=== PATIENT | female | born 1935 | race Caucasian/White ===

== ENCOUNTER 2019-03-31 22:50 | Emergency (ER) | payer OTHER ==
[2019-03-31 22:54] VITALS: TEMP 98.5; BMI 20.2
--- NOTE | 2019-03-31 23:19 | PDOC ---
History of Present Illness - General Chief Complaint: Blood Pressure Problem Stated Complaint: HIGH BLOOD PRESSURE Time Seen by Provider: 03/31/19 23:08 - History of Present Illness Initial Comments: The pt is an 83F w/ a history of HTN and dementia who presents for evaluation of HTN w/ associated chest pain and dizziness for several days. She reports taking Metoprolol daily and being compliant, but has noted SBPs in the 200s for 3-4 days. [place], reports she has been hospitalized for her HTN before, but denies any other medical problems. 03/31/19 23:17 Past History - Past Medical History Allergies/Adverse Reactions: Allergies Allergy/AdvReac Type Severity Reaction Status Date / Time No Known Allergies Allergy Verified 03/31/19 22:54 Cardiac Disorders: Yes COPD: No HTN: Yes Hypercholesterolemia: Yes Other medical history: DEMENTIA - Suicide/Smoking/Psychosocial Hx Smoking History: Never smoked Review of Systems - Review of Systems Able to Perform ROS?: Yes Comments:: GENERAL/CONSTITUTIONAL: No fever or chills. No weakness HEAD, EYES, EARS, NOSE AND THROAT: No change in vision. No ear pain or discharge. No sore throat CARDIOVASCULAR: No shortness of breath RESPIRATORY: Denies cough, hemoptysis GASTROINTESTINAL: No nausea, vomiting, diarrhea or constipation GENITOURINARY: No dysuria, frequency, or change in urination MUSCULOSKELETAL: No joint or muscle swelling or pain. No neck or back pain SKIN: No rash NEUROLOGIC: No headache, loss of consciousness, or change in strength/sensation ENDOCRINE: No increased thirst. No abnormal weight change HEMATOLOGIC/LYMPHATIC: No anemia, easy bleeding, or history of blood clots ALLERGIC/IMMUNOLOGIC: No hives or skin allergy 03/31/19 23:30 *Physical Exam - Vital Signs Last Vital Signs Temp Pulse Resp BP Pulse Ox 98.5 F 83 18 213/92 H 98 03/31/19 22:51 03/31/19 22:51 03/31/19 22:51 03/31/19 22:51 03/31/19 22:51 - Physical Exam Comments: GENERAL: Awake, alert, and oriented to person/place/time, in no acute distress HEAD: No signs of trauma, normocephalic, atraumatic EYES: PERRLA, EOMI, sclera anicteric, conjunctiva clear ENT: Hearing grossly normal, nares patent, oropharynx clear without exudates. No uvular deviation. Moist mucosa LUNGS: No distress, speaks full sentences, clear to auscultation bilaterally HEART: Regular rate and rhythm, normal S1 and S2, no murmurs appreciated, peripheral pulses normal and equal bilaterally ABDOMEN: Soft, nontender, normoactive bowel sounds. No guarding, no rebound EXTREMITIES: Normal inspection, Normal range of motion, no edema. No clubbing or cyanosis NEUROLOGICAL: Cranial nerves II through XII grossly intact. Normal speech, no focal sensorimotor deficits SKIN: Warm, Dry 03/31/19 23:30 ED Treatment Course - LABORATORY CBC & Chemistry Diagram: 03/31/19 23:30 03/31/19 23:30 - RADIOLOGY Radiology Studies Ordered: Category Date Time Status HEAD CT WITHOUT CONTRAST [CT] Stat CT Scan 03/31/19 23:16 Ordered CHEST X-RAY PORTABLE* [RAD] Stat Radiology 03/31/19 23:16 Ordered Medical Decision Making - Medical Decision Making The pt is an 83F w/ a history of HTN who presents for evaluation of HTN urgency NTG 0.4mg SL x1, with subsequent improvement in BP and symptoms, but CP not resolved yet. Dizziness resolved. No anemia No leukocytosis Lytes unremarkable No ROHITH Trop I neg LFTs unremarkable ECG w/ NSR; HR 72; right axis deviation, no evidence of acute ischemia CXR w/o PNA; PNX; effusion 04/01/19 00:16 Pt reports that her symptoms have resolved 04/01/19 01:41 Will repeat Trop I and ECG If neg, plan for D/C w/ PCP and Cardiology f/u 04/01/19 02:25 Repeat Trop I neg and ECG w/o change BP improved Pt denies symptoms at this time Plan for D/C w/ PCP f/u Discharge instructions and return precautions given Pt in agreement and verbalized understanding Dispo: home 04/01/19 03:35 *DC/Admit/Observation/Transfer Diagnosis at time of Disposition: Hypertensive urgency Hypertension Qualifiers: Hypertension type: unspecified Qualified Code(s): I10 - Essential (primary) hypertension Chest pain Qualifiers: Chest pain type: unspecified Qualified Code(s): R07.9 - Chest pain, unspecified - Discharge Dispostion Disposition: HOME Condition at time of disposition: Improved Decision to Admit order: No - Referrals Referrals: [facility] [place] [facility] [place] [Provider Group] Bertram Truong MD [Staff Physician] - - Patient Instructions Printed Discharge Instructions: DI for High Blood Pressure Additional Instructions: You were seen in the Emergency Department for evaluation of high blood pressure , chest pain, and dizziness. Your labs, imaging, and ECG were negative for acute pathology. Review the handout provided at discharge. Follow up with your primary care provider or the referrals provided within a week. Return to the Emergency Department if you develop fevers/chills, chest pain, trouble breathing , dizziness, vision changes, nausea/vomiting, changes in sensation/strength, worsening symptoms, or any new/concerning symptoms. Se lo jenn en el Departamento de Emergencias para evaluar la presin arterial amrit, el dolor en el pecho y el mareo. Inga laboratorios, imgenes y ECG fueron negativos para patologa aguda. Revise el folleto provisto al momento del amrit. Omaira un seguimiento con birch proveedor de atencin primaria o con las referencias proporcionadas dentro de michelle semana. Regrese al Departamento de Emergencias si presenta fiebre / escalofros, dolor en el pecho, dificultad para respirar, mareos, cambios en la visin, nuseas / vmitos, cambios en la sensacin / fuerza, empeoramiento de los sntomas o cualquier sntoma nuevo o relacionado. Print Language: CENTRAL AFRICAN - Post Discharge Activity
[2019-03-31] MEDS ORDERED: NITROGLYCERIN SUBLINGUAL 1/150 0.4 MG TAB SL ONE (23:20)
[2019-03-31] MEDS ORDERED: NITROGLYCERIN SUBLINGUAL 1/150 0.4 MG TAB ONE (23:28)
[2019-03-31 23:39] LABS: BASO % 0.5 % (0-2.0); EOS % 1.9 % (0-4.5); HEMOGLOBIN 11.6 GM/dL (10.7-15.3); LYMPH % 28.8 % (8-40); MCH 29.2 pg (25.7-33.7); MCHC 33.3 g/dl (32.0-36.0); MEAN CELL VOLUME 87.7 fl (80-96); MEAN PLT VOLUME 9.9 fl (7.5-11.1); NEUT % 60.8 % (42.8-82.8); PLATELET COUNT 181 K/MM3 (134-434); RBC 3.98 M/mm3 (3.60-5.2); RDW 13.1 % (11.6-15.6); WHITE BLOOD COUNT 8.1 K/mm3 (4.0-10.0)
[2019-04-01 00:06] LABS: ALBUMIN 3.7 g/dl (3.4-5.0); ALK PHOS 69 U/L (45-117); ANION GAP 5 MMOL/L (8-16); BILIRUBIN,TOTAL 0.3 mg/dL (0.2-1); BLOOD UREA NITROGEN 8.7 mg/dL (7-18); CALCIUM 9.3 mg/dL (8.5-10.1); CHLORIDE 103 mmol/L (98-107); CO2 29 mmol/L (21-32); CREATININE 0.5 mg/dL (0.55-1.3); GLUCOSE,RANDOM 102 mg/dL (74-106); POTASSIUM 3.7 mmol/L (3.5-5.1); SGOT/AST 22 U/L (15-37); SGPT/ALT 20 U/L (13-61); SODIUM 136 mmol/L (136-145); TOT PROT 7.2 g/dl (6.4-8.2)
--- NOTE | 2019-04-01 00:59 | PDOC ---
Documentation entered by Daniel Ladd SCRIBE, acting as scribe for Vasu Horan MD. Vasu Horan MD: This documentation has been prepared by the Wilberto silver Daniel, SCRIBE, under my direction and personally reviewed by me in its entirety. I confirm that the documentation accurately reflects all work, treatment, procedures, and medical decision making performed by me. Attending Attestation - Resident Resident Name: Jose G Matthews - ED Attending Attestation I have performed the following: I have examined & evaluated the patient, The case was reviewed & discussed with the resident, I agree w/resident's findings & plan, Exceptions are as noted - HPI HPI: 03/31/19 23:37 The patient is an 83 year old female with a past medical history of HTN and dementia here today for evaluation of elevated blood pressure and chest discomfort. The patient reports that she has had several days of blood pressures in the 200s at home with non exertional chest discomfort and dizziness. [place] and [place] there but cannot elaborate on why she was hospitalized. Patient denies headache. Denies fever, chills. Denies shortness of breath. Denies nausea, vomiting, diarrhea, abdominal pain. Allergies: NKA - Physicial Exam PE: 03/31/19 23:37 GENERAL: The patient is awake, alert, and fully oriented, Nontoxic - in no acute distress. HEAD: Normocephalic, atraumatic. EYES: extraocular movements intact, sclera anicteric, conjunctiva clear. ENT: Normal voice, Moist mucous membranes. NECK: Normal range of motion, supple LUNGS: Breath sounds equal, clear to auscultation bilaterally. No wheezes, no rhonchi, no rales. HEART: Regular rate and rhythm, without murmur, rub or gallop. ABDOMEN: Soft, nontender, No guarding, no rebound.No CVA tenderness EXTREMITIES: Normal range of motion, no edema. No cyanosis. No erythema, or tenderness. NEUROLOGICAL: No facial assymetry, Normal speech, PSYCH: Normal mood, normal affect. SKIN: Warm, Dry, normal turgor, - Medical Decision Making 03/31/19 23:31 83y F hx of htn, dementia presents with several days of hypertension, cp dizziness, - pt has been compliaint with medications per family. endorses mild chest discomfort but is interemint, non exertional without associated shortness of breath, dyspnea on exertion, diaphoresis will treat ntg for cp/htn family notes pt has been stressed as [place] - I suspect that her hypertension may be stress related. Low suspicion for ACS will obtain troponin 2. 04/01/19 03:55 Troponin negative 2, the patient is currently asymptomatic, blood pressure is also normalized We'll discharge patient with PMD follow-up Heart Score/ECG Review - ECG Impressions Comment:: 04/01/19 00:59 Twelve-lead EKG was performed and reviewed by me. There is normal sinus rhythm with a normal rate. Rate of 72 Right distal axis deviation No ST changes suggestive of acute ischemia
[2019-04-01 03:57] VITALS: BP 159/79; PULSE 79
--- NOTE | 2019-04-01 13:34 | EKG ---
Test Reason : Blood Pressure : / mmHG Vent. Rate : 074 BPM Atrial Rate : 074 BPM P-R Int : 120 ms QRS Dur : 086 ms QT Int : 386 ms P-R-T Axes : 109 154 138 degrees QTc Int : 428 ms SUSPECT ARM LEAD REVERSAL, INTERPRETATION ASSUMES NO REVERSAL NORMAL SINUS RHYTHM RIGHT AXIS DEVIATION ABNORMAL ECG WHEN COMPARED WITH ECG OF 01-APR-2019 00:11, NO SIGNIFICANT CHANGE WAS FOUND Confirmed by RUSS MARTINEZ MD ([id number]) on 04/01/2019 1:34:25 PM Referred By: Confirmed By:RUSS MARTINEZ MD
--- NOTE | 2019-04-01 13:36 | EKG ---
Test Reason : Blood Pressure : / mmHG Vent. Rate : 072 BPM Atrial Rate : 072 BPM P-R Int : 114 ms QRS Dur : 086 ms QT Int : 386 ms P-R-T Axes : 115 145 127 degrees QTc Int : 422 ms SUSPECT ARM LEAD REVERSAL, INTERPRETATION ASSUMES NO REVERSAL NORMAL SINUS RHYTHM RIGHT AXIS DEVIATION ABNORMAL ECG NO PREVIOUS ECGS AVAILABLE Confirmed by RUSS MARTINEZ MD ([id number]) on 04/01/2019 1:36:07 PM Referred By: Confirmed By:RUSS MARTINEZ MD
== END 2019-04-01 03:55 | disposition home or self-care (01) ==
LOC: JER 22:50
DX: I16.0 Hypertensive urgency (principal); E78.00 Pure hypercholesterolemia, unspecified; F03.90 Unspecified dementia, unspecified severity, without behavioral disturbance, psychotic disturbance, mood disturbance, and anxiety
CPT/HCPCS: 36415; 70450-TC; 71045-TC-FY; 80053; 82550; 84484; 85025; 85730; 93005; 93010; 99283-25

== ENCOUNTER 2019-04-04 23:27 | Observation (INO) | payer OTHER ==
[2019-04-04 23:40] VITALS: BMI 25.2
--- NOTE | 2019-04-05 01:41 | PDOC ---
History of Present Illness - General Chief Complaint: Blood Pressure Problem Stated Complaint: HIGH BLOOD PRESSURE Time Seen by Provider: 04/05/19 01:39 History Source: Patient - History of Present Illness Initial Comments: 04/05/19 01:40 83 year old female with nausea, dizziness, headache and chest pain. patient noted that her b/p is elevated than normal. patient reports that she took her dose of b/p med now feels slightly better. Now with chest pain , less intense than before. denies diaphoresis, vomiting, abdominal pain, . pain is not worse with movement or laying down. PMHX: temporal neuritis; hypertension, 04/05/19 02:54 Past History - Past Medical History Allergies/Adverse Reactions: Allergies Allergy/AdvReac Type Severity Reaction Status Date / Time No Known Allergies Allergy Verified 04/04/19 23:40 Cardiac Disorders: Yes COPD: No HTN: Yes Hypercholesterolemia: Yes - Suicide/Smoking/Psychosocial Hx Smoking History: Never smoked Have you smoked in the past 12 months: No Information on smoking cessation initiated: No Hx Alcohol Use: No Drug/Substance Use Hx: No Review of Systems - Review of Systems Able to Perform ROS?: Yes Is the patient limited Maltese proficient: No Constitutional: No: Symptoms Reported, See HPI, Chills, Diaphoresis, Fever, Loss of Appetite, Malaise, Night Sweats, Weakness, Weight Stable, Unintentional Wgt. Loss, Unexplained wgt Loss, Other Cardiac (ROS): Yes: Chest Pain. No: Symptoms Reported, See HPI, Edema, Irregular Heart Rate, Lightheadedness, Palpitations, Syncope, Chest Tightness, Other ABD/GI: Yes: Nausea. No: Symptoms Reported, See HPI, Abdominal Distended, Abd. Pain w/ defecation, Blood Streaked Bowels, Constipated, Diarrhea, Difficulty Swallowing, Poor Appetite, Poor Fluid Intake, Rectal Bleeding, Vomiting, Indigestion, Abdominal cramping, Tarry Stools, Other Neurological: Yes: Headache, Dizziness. No: Symptoms reported, See HPI, Numbness, Paresthesia, Pre-Existing Deficit, Seizure, Tingling, Tremors, Weakness, Unsteady Gait, Ataxia, Other *Physical Exam - Vital Signs Last Vital Signs Temp Pulse Resp BP Pulse Ox 98.7 F 79 18 169/83 100 04/04/19 23:37 04/04/19 23:37 04/04/19 23:37 04/04/19 23:37 04/04/19 23:37 - Physical Exam General Appearance: Yes: Appropriately Dressed HEENT: positive: Normal ENT Inspection Respiratory/Chest: positive: Lungs Clear, Normal Breath Sounds. negative: Chest Tender Cardiovascular: positive: Regular Rhythm, Regular Rate Gastrointestinal/Abdominal: positive: Normal Bowel Sounds, Soft. negative: Tender Extremity: positive: Normal Capillary Refill, Normal Inspection, Normal Range of Motion Integumentary: positive: Normal Color, Dry, Warm Neurologic: positive: Fully Oriented, Alert Heart Score/ECG Review - History History: Slightly suspicious - Electrocardiogram EKG: Normal - Age Age: >/= 65 - Risk Factors Risk Factors Heart Score: Yes Hx Hypertension Based on the list above the patient has:: 1-2 risk factors - Troponin Troponin: </= normal limit - Score Heart Score - Total: 3 - ECG Intrepretation Rhythm: Regular Rhythm Comment:: 04/05/19 03:01 NSR : 72 bpm ED Treatment Course - LABORATORY CBC & Chemistry Diagram: 04/05/19 02:20 04/05/19 02:20 - ADDITIONAL ORDERS Additional order review: Laboratory Results 04/05/19 04/05/19 02:20 02:20 PT with INR 11.20 INR 0.95 Sodium 137 Potassium 4.8 Chloride 103 Carbon Dioxide 30 Anion Gap 3 L BUN 9.9 Creatinine 0.6 Est GFR (CKD-EPI)AfAm 99.07 Est GFR (CKD-EPI)NonAf 85.48 Random Glucose 108 H Calcium 9.3 Magnesium 2.2 Total Bilirubin 0.2 AST 22 ALT 17 Alkaline Phosphatase 74 Creatine Kinase 146 Troponin I < 0.02 Total Protein 7.4 Albumin 3.8 04/05/19 02:20 RBC 4.02 MCV 88.1 MCHC 33.3 RDW 13.4 MPV 10.0 Neutrophils % 63.5 Lymphocytes % 28.2 Monocytes % 6.5 Eosinophils % 1.6 Basophils % 0.2 - RADIOLOGY Radiology Studies Ordered: Category Date Time Status HEAD CT WITHOUT CONTRAST [CT] Stat CT Scan 04/05/19 01:43 Taken CHEST X-RAY PORTABLE* [RAD] Stat Radiology 04/05/19 01:42 Taken - Medications Given in the ED: ED Medications Discontinued Medications Generic Name Dose Route Start Last Admin Trade Name Freq PRN Reason Stop Dose Admin Aspirin 162 mg 04/05/19 01:42 04/05/19 02:35 Asa - PO 04/05/19 01:43 162 mg ONCE ONE Administration Medical Decision Making - Medical Decision Making 04/05/19 03:00 A: chest pain r/o ACS P: cbc cmp cardiac enzymes chest xray 04/05/19 04:20 CT head: The ventricular system is midline and nondilated. There is mild cortical atrophy and small vessel ischemic disease.. There is no bleed, mass, extra-axial fluid collection or mass effect. No skull fracture or skull lesion is identified. The visualized paranasal sinuses and mastoid air cells are clear patient signed out to Dr. Rubalcava/ Dr. Vásquez *DC/Admit/Observation/Transfer Diagnosis at time of Disposition: Chest pain Qualifiers: Chest pain type: unspecified Qualified Code(s): R07.9 - Chest pain, unspecified - Discharge Dispostion Decision to Admit order: Yes - Referrals - Patient Instructions - Post Discharge Activity
[2019-04-05] MEDS ORDERED: ASPIRIN 81 MG CHEWABLE TABLETS PO ONE (01:42)
[2019-04-05] MEDS ORDERED: ASPIRIN 81 MG CHEWABLE TABLETS ONE (02:05)
[2019-04-05 02:33] LABS: BASO % 0.2 % (0-2.0); EOS % 1.6 % (0-4.5); HEMATOCRIT 35.4 % (32.4-45.2); HEMOGLOBIN 11.8 GM/dL (10.7-15.3); LYMPH % 28.2 % (8-40); MCH 29.3 pg (25.7-33.7); MCHC 33.3 g/dl (32.0-36.0); MEAN CELL VOLUME 88.1 fl (80-96); MONO % 6.5 % (3.8-10.2); NEUT % 63.5 % (42.8-82.8); PLATELET COUNT 194 K/MM3 (134-434); RBC 4.02 M/mm3 (3.60-5.2); RDW 13.4 % (11.6-15.6); WHITE BLOOD COUNT 9.6 K/mm3 (4.0-10.0)
[2019-04-05 02:48] LABS: INR 0.95 (0.83-1.09); PROTHROMBIN TIME (PATIENT) 11.2 SEC (9.7-13.0)
[2019-04-05 03:03] LABS: ALBUMIN 3.8 g/dl (3.4-5.0); ALK PHOS 74 U/L (45-117); ANION GAP 3 MMOL/L (8-16); BILIRUBIN,TOTAL 0.2 mg/dL (0.2-1); BLOOD UREA NITROGEN 9.9 mg/dL (7-18); CALCIUM 9.3 mg/dL (8.5-10.1); CHLORIDE 103 mmol/L (98-107); CO2 30 mmol/L (21-32); CREATININE 0.6 mg/dL (0.55-1.3); GLUCOSE,RANDOM 108 mg/dL (74-106); MAGNESIUM 2.2 mg/dL (1.8-2.4); POTASSIUM 4.8 mmol/L (3.5-5.1); SGOT/AST 22 U/L (15-37); SGPT/ALT 17 U/L (13-61); SODIUM 137 mmol/L (136-145); TOT PROT 7.4 g/dl (6.4-8.2)
--- NOTE | 2019-04-05 04:38 | HP ---
Admitting History and Physical - Primary Care Physician PCP: None - Admission Chief Complaint: Chest pain History of Present Illness: Patient is an 83 yo HTN from [facility] presenting with recurrent CP x 1 day. Pt reports retrosternal CP intermittent lasting up to 4 hours overnight with associated nausea and throat pain, no vomiting. At the time the pt's daughter took her BP and documentes SBP 200s. Per pt and daughter, pt has been on BP meds from [facility] which they do not know and she has been compliant. t was in the ED on 03/31 for chest pain and received sublingual medication and a medication to chew. About 6 months ago in [place], they report she had a surgery for possible trigerminal neuralgia and are unsure if she is on medication. After the sx 03/21 pt reported syncope. No prior CAD documentation, no stents. Had C/sections x 2 in past. Pt is able to ambulate on her own Denies ETOH/Tobacco Lives usually in [place] with one daughter, recently came to visit another daughter in [place] ED: ASA CT head, CXR Initial BP 169/83, negative trop EKG-72 bpm, NSR, nl axis, nl intervals, no JASIEL/STD, QTC-429 History Source: Patient, Family Member - Past Medical History Cardiovascular: Yes: HTN - Past Surgical History Past Surgical History: Yes: - Smoking History Smoking history: Never smoked Have you smoked in the past 12 months: No - Alcohol/Substance Use Hx Alcohol Use: No Home Medications - Allergies Allergies/Adverse Reactions: Allergies Allergy/AdvReac Type Severity Reaction Status Date / Time No Known Allergies Allergy Verified 04/04/19 23:40 Review of Systems - Review of Systems Constitutional: denies: Chills, Fever, Lethargy Eyes: denies: Blurred Vision HENT: denies: Difficult Swallowing Neck: denies: Stiffness Cardiovascular: reports: Chest Pain Respiratory: denies: Cough Genitourinary: denies: Dysuria Integumentary: denies: Other Neurological: denies: Change in LOC, Confusion, Tremors Endocrine: reports: Excessive Sweating Physical Examination Vital Signs: Vital Signs Temperature 98.7 F 04/04/19 23:37 Pulse Rate 79 04/04/19 23:37 Respiratory Rate 18 04/04/19 23:37 Blood Pressure 169/83 04/04/19 23:37 O2 Sat by Pulse Oximetry (%) 100 04/04/19 23:37 Constitutional: Yes: No Distress, Calm Eyes: Yes: Conjunctiva Clear, EOM Intact, PERRL. No: Sclera Icterus HENT: No: Drooling, Pharyngeal Erythema Neck: Yes: Supple Cardiovascular: Yes: Regular Rate and Rhythm, S1, S2 Respiratory: Yes: CTA Bilaterally Gastrointestinal: Yes: Normal Bowel Sounds, Tenderness (suprapubic) Renal/: No: CVA Tenderness - Left, CVA Tenderness - Right Edema: No Peripheral Pulses WNL: Yes Neurological: Yes: Alert, Oriented, Babinski negative. No: Confusion, Facial Droop, Pre-Existing Deficit ...Motor Strength: WNL Labs: CBC, BMP 04/05/19 02:20 04/05/19 02:20 Imaging - Results X-ray: Image Reviewed Cat Scan: Report Reviewed Assessment/Plan Current Medications Amlodipine Besylate (Norvasc -) 5 mg PO AM LEEANNA Aspirin (Asa -) 81 mg PO DAILY LEEANNA Atorvastatin Calcium (Lipitor -) 80 mg PO HS LEEANNA Enoxaparin Sodium (Lovenox -) 40 mg SQ DAILY LEEANNA Hydrochlorothiazide (Hctz -) 12.5 mg PO AM LEEANNA Lisinopril (Prinivil) 20 mg PO HS LEEANNA Assessment/Plan: Patient is an 83 yo HTN from [place] presenting with recurrent CP x 1 day. Pt reports retrosternal CP intermittent lasting up to 4 hours overnight with associated nausea and throat pain, no vomiting. #Chest pain R/O ACS Could be in setting of elevated BP, no trops noted- cont trend Recent ED visit for similar symptoms Repeat EKG EKG-72bpm, nSR, nl axis, normal intervals, no JASIEL/STD, normal R wave progression , QTC-429 ECHO Lipids HgbA1c Card consult- Dr Alvarez Daily ASA Lipitor #Elevated BP On unknown BP med at home Start lisinopril 2omg HS Norvasc 5mg am, Hctz-12.5mg am Cont to monitor #suprapubic tenderness Pending UA Tele obs Sodium controlled diet Monitor lytes, replete as needed Sodium controlled diet Visit type - Emergency Visit Emergency Visit: Yes ED Registration Date: 04/05/19 Care time: The patient presented to the Emergency Department on the above date and was hospitalized for further evaluation of their emergent condition. - New Patient This patient is new to me today: Yes Date on this admission: 04/05/19 - Critical Care Critical Care patient: No
--- NOTE | 2019-04-05 05:26 | PN ---
Teaching Attending Note Name of Resident: Lore Rubalcava ATTENDING PHYSICIAN STATEMENT I saw and evaluated the patient. I reviewed the resident's note and discussed the case with the resident. I agree with the resident's findings and plan as documented. SUBJECTIVE: Patient is an 83 year old woman with HTN from [place] presenting with recurrent chest pain for 1 day. Pain is retrosternal, intermittent lasting up to 4 hours overnight with associated nausea and throat pain but no vomiting. At the time the her daughter measured her BP and noted systolic BP in the 200s. Patient has been on BP medications from [facility] which they do not know, but professes compliance. She was in our ER on 03/31/19 for chest pain and received sublingual medication and a medication to chew. About 6 months ago in [place], they report she had a surgery for possible trigerminal neuralgia and are unsure if she is on medication. Denies [place], cardiac stents or family history of CAD. Denies any SOB, diaphoresis, vomiting, abdominal pain, dysuria or diarrhea. OBJECTIVE: Alert Vital Signs Period Temp Pulse Resp BP Sys/[place] Pulse Ox Last 24 Hr 98.7 F 79 18 169/83 100 HEENT: No Jaundice, eye redness or discharge, PERRLA, EOMI. Normocephalic, atraumatic. External ears are normal and hearing is grossly intact. No nasal discharge. Neck: Supple, nontender. No palpable adenopathy or thyromegaly. No JVD Chest: Good effort. Clear to auscultation and percussion. Heart: Regular. No S3, rub or murmur Abdomen: Not distended, soft, nontender and no HSM. No rebound or guarding. Normal bowel sounds. Ext: Peripheral pulses intact. No leg edema. Skin: Warm and dry. No petechiae, rash or ecchymosis. Neuro: Alert. Oriented x3. CN 2-12 grossly intact. Sensation grossly intact in all four extremities and DTR are symmetric. Psych: Appropriate mood and affect. Good insight. Current Medications Generic Name Dose Route Start Last Admin Trade Name Freq PRN Reason Stop Dose Admin Amlodipine Besylate 5 mg 04/05/19 07:00 Norvasc - PO AM LEEANNA Aspirin 81 mg 04/05/19 10:00 Asa - PO DAILY [facility] Atorvastatin Calcium 80 mg 04/05/19 22:00 Lipitor - PO HS LEEANNA Enoxaparin Sodium 40 mg 04/05/19 10:00 Lovenox - SQ DAILY LEEANNA Hydrochlorothiazide 12.5 mg 04/05/19 07:00 Hctz - PO AM LEEANNA Lisinopril 20 mg 04/05/19 22:00 Prinivil PO HS LEEANNA Abnormal Lab Results 04/05/19 02:20 Anion Gap 3 L Random Glucose 108 H ASSESSMENT AND PLAN: 1. Chest pain - Pain is atypical, but recurrent. May be related to uncontrolled hypertension. EKG shows NSR with no ST-T wave changes, and initial troponin is negative. No acute abnormality on CXR or noncontrast head CT. Urinalysis is pending. Will admit to telemetry to rule out ACS, get fasting lipids, HbA1c, ECHO and consult cardiology. 2. Uncontrolled hypertension - Family does not have a list of her outpatient antihypertensive drugs. Will treat with Lisinopril, HCTZ and Amlodipine. Revise regimen accordingly to ensure good BP control. Nonpharmacologic measures to control hypertension like weight loss, salt restriction and exercise discussed. 3. DVT prophylaxis - Lovenox 40 mg SQ q 24 hours. 4. Advance directives - Full code
[2019-04-05] MEDS ORDERED: amLODIPine BESYLATE 5 MG TABLET (FP) PO SCH (07:00)
[2019-04-05] MEDS ORDERED: HYDROCHLOROTHIAZIDE 12.5 MG CAPSULE (FP) PO SCH (07:00)
[2019-04-05] MEDS ORDERED: amLODIPine BESYLATE 5 MG TABLET (FP) ONE (07:22)
[2019-04-05] MEDS ORDERED: HYDROCHLOROTHIAZIDE 25 MG TABLET (FP) ONE (07:23)
[2019-04-05] MEDS: ASPIRIN 81 MG CHEWABLE TABLETS PO SCH ×2 (09:59→10:07)
[2019-04-05] MEDS ORDERED: ENOXAPARIN NA (PORCINE) 40 MG/0.4 ML DISP.SYRIN SQ SCH (10:00)
[2019-04-05 10:07] LABS: BASO % 0.9 % (0-2.0); EOS % 2.9 % (0-4.5); HEMATOCRIT 36.4 % (32.4-45.2); HEMOGLOBIN 12.2 GM/dL (10.7-15.3); LYMPH % 26.2 % (8-40); MCH 29.2 pg (25.7-33.7); MCHC 33.4 g/dl (32.0-36.0); MEAN CELL VOLUME 87.6 fl (80-96); MEAN PLT VOLUME 9.5 fl (7.5-11.1); MONO % 6.8 % (3.8-10.2); NEUT % 63.2 % (42.8-82.8); RBC 4.16 M/mm3 (3.60-5.2); RDW 13.5 % (11.6-15.6); WHITE BLOOD COUNT 7.4 K/mm3 (4.0-10.0)
[2019-04-05 10:21] LABS: INR 0.92 (0.83-1.09); PROTHROMBIN TIME (PATIENT) 10.8 SEC (9.7-13.0)
[2019-04-05 10:24] LABS: ACTIVATED PTT 29.2 SECONDS (25.2-36.5)
--- NOTE | 2019-04-05 10:34 | EKG ---
Test Reason : Blood Pressure : / mmHG Vent. Rate : 072 BPM Atrial Rate : 072 BPM P-R Int : 120 ms QRS Dur : 078 ms QT Int : 392 ms P-R-T Axes : 073 024 043 degrees QTc Int : 429 ms NORMAL SINUS RHYTHM NORMAL ECG Confirmed by Marciano Still MD ([id number]) on 04/05/2019 10:34:21 AM Referred By: Confirmed By:Marciano Still MD
[2019-04-05 10:35] LABS: PLATELET COUNT 199 K/MM3 (134-434)
[2019-04-05 10:37] LABS: ALBUMIN 3.7 g/dl (3.4-5.0); ALK PHOS 74 U/L (45-117); ANION GAP 5 MMOL/L (8-16); BILIRUBIN,TOTAL 0.3 mg/dL (0.2-1); CALCIUM 9.6 mg/dL (8.5-10.1); CHLORIDE 102 mmol/L (98-107); CHOLESTEROL 229 mg/dL (50-200); CO2 31 mmol/L (21-32); CREATININE 0.6 mg/dL (0.55-1.3); GLUCOSE,RANDOM 86 mg/dL (74-106); HDL CHOLESTEROL 95 mg/dL (40-60); MAGNESIUM 2.2 mg/dL (1.8-2.4); PHOSPHOROUS 3.3 mg/dL (2.5-4.9); POTASSIUM 4.2 mmol/L (3.5-5.1); SGOT/AST 20 U/L (15-37); SGPT/ALT 19 U/L (13-61); SODIUM 138 mmol/L (136-145); TOT PROT 7.5 g/dl (6.4-8.2); TRIGLYCERIDES 94 mg/dL (0-150)
--- NOTE | 2019-04-05 10:38 | EKG ---
Test Reason : Blood Pressure : / mmHG Vent. Rate : 070 BPM Atrial Rate : 070 BPM P-R Int : 120 ms QRS Dur : 082 ms QT Int : 394 ms P-R-T Axes : 083 061 056 degrees QTc Int : 425 ms POOR DATA QUALITY, INTERPRETATION MAY BE ADVERSELY AFFECTED NORMAL SINUS RHYTHM NONSPECIFIC T WAVE ABNORMALITY ABNORMAL ECG Confirmed by Marciano Still MD ([id number]) on 04/05/2019 10:38:28 AM Referred By: Confirmed By:Marciano Still MD
--- NOTE | 2019-04-05 11:23 | CON.CARD ---
Consult Consult Specialty:: Cardiology Referred by:: Hospitalist Reason for Consultation:: Cardiac evaluation - History of Present Illness Chief Complaint: Chest pain History of Present Illness: Patient is an 83 year old female from [place] with underlying history of HTN and hypercholesterolemia who presented to [facility] with retrosternal chest discomfort intermittently described as pressure like and nonradiating. She also complained of some nausea and throat pain. Currently, she denies chest pain, SOB or palpitations. She denies paroxysmal nocturnal dyspnea or orthopnea. She denies fever or chills. She denies nausea, vomiting, diarrhea or abdominal pain. She denies headache or lightheadedness. She reports neuralgia and had a procedure in [place]. - History Source History Provided By: Family Member, Medical Record Limitations to Obtaining History: Language Barrier - Past Medical History Cardio/Vascular: Yes: HTN, Hyperlipdemia - Past Surgical History Past Surgical History: Yes: Additional Surgical History: Procedure for neuralgia - Alcohol/Substance Use Hx Alcohol Use: No - Smoking History Smoking history: Never smoked Have you smoked in the past 12 months: No Home Medications - Allergies Allergies/Adverse Reactions: Allergies Allergy/AdvReac Type Severity Reaction Status Date / Time aspirin Allergy Unknown Verified 04/05/19 10:07 - Home Medications Home Medications: Ambulatory Orders Unobtainable 04/05/19 Family Disease History - Family Disease History Other Family History: Malignancy and CAD Review of Systems - Review of Systems Constitutional: denies: Chills, Fever Cardiovascular: reports: Chest Pain. denies: Palpitations, Shortness of Breath Respiratory: denies: Cough, Hemoptysis, Orthopnea, PND, SOB, SOB on Exertion Gastrointestinal: denies: Abdominal Pain, Constipation, Diarrhea, Melena, Nausea , Rectal Bleeding, Vomiting Musculoskeletal: denies: Back Pain, Joint Pain Neurological: denies: Dizziness, Headache, Seizure, Syncope Vital Signs: Vital Signs Temperature 97.9 F 04/05/19 07:17 Pulse Rate 87 04/05/19 07:17 Respiratory Rate 18 04/04/19 23:37 Blood Pressure 164/62 04/05/19 07:17 O2 Sat by Pulse Oximetry (%) 99 04/05/19 07:17 Eyes: Yes: PERRL HENT: Yes: Atraumatic Neck: Yes: Supple Respiratory: Yes: CTA Bilaterally Gastrointestinal: Yes: Normal Bowel Sounds, Soft. No: Tenderness Cardiovascular: Yes: Regular Rate and Rhythm JVD: No PMI: Non-Displaced Heart Sounds: Yes: S1, S2 Murmur: Yes: Systolic Murmur, Grade 1 Edema: No - Other Data Labs, Other Data: CBC, BMP 04/05/19 09:50 04/05/19 09:50 INR, PTT INR 0.92 (0.83-1.09) 04/05/19 09:50 Troponin, BNP 04/05/19 04/05/19 02:20 09:50 Troponin I < 0.02 < 0.02 Sinus rhythm, nonspecific T abnormality Imaging - Results Chest X-ray: Report Reviewed (Unremarkable) Cat Scan: Report Reviewed (Head CT unremarkable) EKG: Report Reviewed Problem List - Problems (1) Hypercholesterolemia Code(s): E78.00 - PURE HYPERCHOLESTEROLEMIA, UNSPECIFIED (2) Chest pain Code(s): R07.9 - CHEST PAIN, UNSPECIFIED Qualifiers: Chest pain type: unspecified Qualified Code(s): R07.9 - Chest pain, unspecified (3) Hypertension Code(s): I10 - ESSENTIAL (PRIMARY) HYPERTENSION Qualifiers: Hypertension type: unspecified Qualified Code(s): I10 - Essential (primary ) hypertension Assessment/Plan 1. Chest pain syndrome, atypical 2. HTN 3. Hypercholesterolemia PLAN: 1. Cardiac enzymes are negative 2. Continue Amlodipine, Prinivil and HCTZ as tolerated 3. Continue Atorvastatin 4. ASA 5. Echocardiography to assess LV/RV and valvular function Further plans are to follow Kirk Modi MD
[2019-04-05 11:50] VITALS: TEMP 98.2
--- NOTE | 2019-04-05 11:55 | ECHO ---
Name: ROLAND HALL Exam:Adult Echocardiogram Study Date: 04/05/2019 09:13 AM Age: 83 yrs Reason For Study: Chest pAIN ELEVATED BP Height: 59 in Weight: 125 lb BSA: 1.5 m2 MMode/2D Measurements & Calculations IVSd: 0.68 cm Ao root diam: 2.5 cm LVIDd: 4.4 cm LA dimension: 3.1 cm LVIDs: 2.9 cm LVPWd: 0.61 cm EDV(Teich): 86.8 ml LVOT diam: 2.0 cm ESV(Teich): 31.1 ml Doppler Measurements & Calculations MV E max rajesh: 62.2 cm/sec Ao V2 max: 168.5 cm/sec MV A max rajesh: 87.9 cm/sec Ao max P.4 mmHg MV E/A: 0.71 Ao V2 mean: 111.2 cm/sec MV dec time: 0.26 sec Ao mean P.6 mmHg Ao V2 VTI: 33.7 cm JOCELYNN(I,D): 1.6 cm2 JOCELYNN(V,D): 1.4 cm2 LV V1 max P.2 mmHg SV(LVOT): 53.5 ml LV V1 mean P.4 mmHg LV V1 max: 74.7 cm/sec LV V1 mean: 55.7 cm/sec LV V1 VTI: 17.5 cm TR max rajesh: 230.5 cm/sec Med Peak E' Rajesh: 7.4 cm/sec TR max P.3 mmHg Med E/e': 8.4 Lat Peak E' Rajesh: 8.3 cm/sec Lat E/e': 7.5 Procedure A complete two-dimensional transthoracic echocardiogram was performed (2D, M-mode, Doppler and color flow Doppler). Left Ventricle The left ventricular size, thickness and function are normal. Ejection Fraction = 65%. E/A reversal c onsistent with but not diagnostic of poor LV compliance. The left ventricular wall motion is normal. Right Ventricle The right ventricle is normal in size and function. Atria Normal left and right atrial size and function. Mitral Valve The mitral valve is normal in structure and function. There is trace to mild mitral regurgitation. Tricuspid Valve The tricuspid valve is normal in structure and function. There is mild tricuspid regurgitation. Right ventricular systolic pressure is 24 mmhg. Aortic Valve There is moderate aortic sclerosis.;. No hemodynamically significant valvular aortic stenosis. Pulmonic Valve The pulmonic valve is not well visualized. Trace to mild pulmonic valvular regurgitation. Great Vessels The aortic root is normal size. Pericardium/Pleura There is no pericardial effusion. There is no pleural effusion. Interpretation Summary The left ventricular size, thickness and function are normal Ejection Fraction = 65%. The right ventricle is normal in size and function. There is trace to mild mitral regurgitation. There is mild tricuspid regurgitation. Right ventricular systolic pressure is 24 mmhg. There is moderate aortic sclerosis.; Trace to mild pulmonic valvular regurgitation. MD Marciano Still 04/05/2019 11:54 AM
--- NOTE | 2019-04-05 15:03 | PN ---
Teaching Attending Note Name of Resident: Mary Grace Akhtar ATTENDING PHYSICIAN STATEMENT I saw and evaluated the patient. I reviewed the resident's note and discussed the case with the resident. I agree with the resident's findings and plan as documented. SUBJECTIVE:no more CP. states she is complaint with home meds but does not recall what its called. denies Cp, SOB, fever, chills, N/V/C/D OBJECTIVE: Last Vital Signs Temp Pulse Resp BP Pulse Ox 98.2 F 69 19 131/68 100 04/05/19 11:49 04/05/19 11:49 04/05/19 11:49 04/05/19 11:49 04/05/19 11:49 General NAD CV S1 S2 RRR no murmur/rub/gallop no chest wall tenderness lungs CTA B/L no wheezing/rales/rhonchi ASSESSMENT AND PLAN: 83yo F with PMH HTN presenting with CP and found to have elevated BP 1. HTN urgency- started on norvasc 5mg and HCTZ 12.5mg with improvement in BP. will check echo. 2. CP- likely due to HTN. cardiac markers neg x2. check echo. will need to have ischemia eval but can be done as outpatient 3. spoke with daughter present at bedside. all questions answered. verbalized understanding and agreement. plan for d/c later today pending echo
--- NOTE | 2019-04-05 15:41 | DS ---
Physical Exam: SUBJECTIVE: Patient seen and examined at bedside. No acute events overnight. OBJECTIVE: Vital Signs Period Temp Pulse Resp BP Sys/[place] Pulse Ox Last 24 Hr 97.9 F-98.7 F 69-87 18-19 131-169/62-83 97-100 PHYSICAL EXAM GENERAL: [place]-speaking female. AAOx3. NAD. HEENT: AT/NC. MMM. NECK: Trachea midline, full range of motion, supple. LUNGS: CTA B/L. No wheezes, rhonchi, rales noted. HEART: RRR. Normal S1, S2. No murmurs noted. ABDOMEN: Soft, nontender, nondistended, normoactive bowel sounds, no guarding, no rebound, no hepatosplenomegaly, no masses. EXTREMITIES: 2+ pulses, warm, well-perfused, no edema. NEUROLOGICAL: Cranial nerves II through XII grossly intact. Normal speech, gait not observed. PSYCH: Normal mood, normal affect. SKIN: Warm, dry, normal turgor, no rashes or lesions noted. LABS Laboratory Results - last 24 hr 04/05/19 04/05/19 04/05/19 02:20 02:20 02:20 WBC 9.6 RBC 4.02 Hgb 11.8 Hct 35.4 MCV 88.1 MCH 29.3 MCHC 33.3 RDW 13.4 Plt Count 194 MPV 10.0 Absolute Neuts (auto) 6.1 Neutrophils % 63.5 Lymphocytes % 28.2 Monocytes % 6.5 Eosinophils % 1.6 Basophils % 0.2 Nucleated RBC % 0 PT with INR 11.20 INR 0.95 PTT (Actin FS) Sodium 137 Potassium 4.8 Chloride 103 Carbon Dioxide 30 Anion Gap 3 L BUN 9.9 Creatinine 0.6 Est GFR (CKD-EPI)AfAm 99.07 Est GFR (CKD-EPI)NonAf 85.48 Random Glucose 108 H Hemoglobin A1c % Calcium 9.3 Phosphorus Magnesium 2.2 Total Bilirubin 0.2 AST 22 ALT 17 Alkaline Phosphatase 74 Creatine Kinase 146 Troponin I < 0.02 Total Protein 7.4 Albumin 3.8 Triglycerides Cholesterol Total LDL Cholesterol HDL Cholesterol 04/05/19 04/05/19 04/05/19 09:50 09:50 09:50 WBC 7.4 RBC 4.16 Hgb 12.2 Hct 36.4 MCV 87.6 MCH 29.2 MCHC 33.4 RDW 13.5 Plt Count 199 MPV 9.5 Absolute Neuts (auto) 4.7 Neutrophils % 63.2 Lymphocytes % 26.2 Monocytes % 6.8 Eosinophils % 2.9 D Basophils % 0.9 D Nucleated RBC % 0 PT with INR 10.80 INR 0.92 PTT (Actin FS) 29.2 Sodium 138 Potassium 4.2 Chloride 102 Carbon Dioxide 31 Anion Gap 5 L BUN 8.0 Creatinine 0.6 Est GFR (CKD-EPI)AfAm 99.07 Est GFR (CKD-EPI)NonAf 85.48 Random Glucose 86 Hemoglobin A1c % Calcium 9.6 Phosphorus 3.3 Magnesium 2.2 Total Bilirubin 0.3 AST 20 ALT 19 Alkaline Phosphatase 74 Creatine Kinase Troponin I < 0.02 Total Protein 7.5 Albumin 3.7 Triglycerides 94 Cholesterol 229 H Total LDL Cholesterol 121 H HDL Cholesterol 95 H 04/05/19 09:50 WBC RBC Hgb Hct MCV MCH MCHC RDW Plt Count MPV Absolute Neuts (auto) Neutrophils % Lymphocytes % Monocytes % Eosinophils % Basophils % Nucleated RBC % PT with INR INR PTT (Actin FS) Sodium Potassium Chloride Carbon Dioxide Anion Gap BUN Creatinine Est GFR (CKD-EPI)AfAm Est GFR (CKD-EPI)NonAf Random Glucose Hemoglobin A1c % 6.2 Calcium Phosphorus Magnesium Total Bilirubin AST ALT Alkaline Phosphatase Creatine Kinase Troponin I Total Protein Albumin Triglycerides Cholesterol Total LDL Cholesterol HDL Cholesterol HOSPITAL COURSE: Date of Admission:04/05/19 IMAGING: * ECHO: EF 65%. Trace to mild MR. Mild TR. Mod aortic sclerosis. Mild pulmonic valvular regurg. 83yo F with PMH HTN presenting with CP and found to have elevated BP monitored for hypertensive urgency. Pt was started on Norvasc and HCTZ with improvement in BP. An echo was done, results noted above. Additionally, pt was evaluated by cardio who recommended continuation of BP meds. Throughout pt's hospital stay, her symptoms improved. She was discharged home and advised to follow up with her PCP and wood chopper for outpatient routine evaluation. Date of Discharge: 04/05/19 Minutes to complete discharge: 35 Discharge Summary Reason For Visit: CHEST PAIN, HYPERTENSION Current Active Problems Chest pain (Acute) Hypercholesterolemia (Acute) Condition: Improved - Instructions Diet, Activity, Other Instructions: You were seen in the hospital for complaints of high blood pressure and chest pain. An echocardiogram (ultrasound of the heart) was done that did not show any acute cardiac findings. No emergent intervention was needed. Throughout your hospital stay, your symptoms improved. You were started on medications to control your blood pressure levels. You are being discharged home. MEDICATIONS We have added the following medications to your list: Please START taking Lisinopril 20 mg once a day by mouth. Please START taking Hydrochlorothiazide 12.5 mg once in the morning by mouth. Please START taking Amlodipine 5 mg once in the morning by mouth. Please START taking Aspirin 81 mg once a day by mouth. Please START taking Atorvastatin 80 mg once a day by mouth. FOLLOW UP Please follow up with your primary care physician within 1 week. If you do not have a PCP, you may make an appointment at [facility] [place]. Patricia. You will need to take your blood pressure readings every day and follow up with your primary care physician to adjust your medications accordingly. Please follow up with your wood chopper, Dr. Kirk Modi for further outpatient monitoring of your heart. If you experience worsening headaches, dizziness, chest pain, shortness of breath, difficulty breathing, visual changes, or other associated symptoms, please proceed to your nearest emergency room immediately. Referrals: [facility] [Provider Group] Javy Patricia MD [Staff Physician] - Kirk Modi MD [Staff Physician] - 1 Week Disposition: HOME - Home Medications Comprehensive Discharge Medication List: Ambulatory Orders Amlodipine Besylate [Norvasc -] 5 mg PO AM #30 tablet 04/05/19 Aspirin [ASA -] 81 mg PO DAILY #30 tab.chew 04/05/19 Atorvastatin Ca [Lipitor] 80 mg PO HS #30 tablet 04/05/19 Biotin/Keratin [Biotin Plus Keratin Tablet] 04/05/19 Hydrochlorothiazide [Hctz -] 12.5 mg PO AM #30 cap 04/05/19 Lisinopril [Prinivil] 20 mg PO HS #30 tablet 04/05/19 This patient is new to me today: Yes Date on this admission: 04/06/19 Emergency Visit: Yes ED Registration Date: 04/05/19 Care time: The patient presented to the Emergency Department on the above date and was hospitalized for further evaluation of their emergent condition. Critical Care patient: No - Discharge Referral Referred to [facility] Med P.C.: No
[2019-04-05 16:02] VITALS: BP 142/78; PULSE 83
[2019-04-05] MEDS ORDERED: LISINOPRIL 20 MG TABLET (FP) PO SCH (22:00)
[2019-04-05] MEDS ORDERED: ATORVASTATIN CA 80 MG TABLET (FP) PO SCH (22:00)
== END 2019-04-05 15:45 | disposition home or self-care (01) ==
LOC: JER 23:27 → JERBED 04-05 04:02
PROVIDERS: ADMIT Internal Medicine; ATTEND Internal Medicine
PROC: 3E013GC Introduction of Other Therapeutic Substance into Subcutaneous Tissue, Percutaneous Approach (ICD-10-PCS; principal; 2019-04-05)
DX: R07.9 Chest pain, unspecified (principal); I10 Essential (primary) hypertension; I16.0 Hypertensive urgency; E78.5 Hyperlipidemia, unspecified
CPT/HCPCS: 36415; 70450-TC; 71045-TC-FY; 80053; 80061; 82550; 83036; 83721; 83735; 84100; 84484; 85025; 85610; 85730; 93005; 93010; 93306-TC; 96372; 99284-25; G0378